=== PATIENT | female | born 1995 | race African-American/Black ===

== ENCOUNTER 2024-08-19 19:34 | Emergency (ER) | payer SELFPAY ==
[2024-08-19 19:37] VITALS: BMI 24.1
[2024-08-19 20:07] VITALS: BP 110/60; PULSE 106; RESP 24; TEMP 37; O2SAT 94
--- NOTE | 2024-08-19 21:21 | EDRME_ITS ---
Rapid Medical Screening Exam RME Arrival date/time: 08/19/24 19:34 Chief Complaint: Asthma Time Seen by Provider: 08/19/24 21:12 Vital signs: Vital Signs Temperature 98.6 F 08/19/24 20:07 Pulse Rate 106 H 08/19/24 20:07 Respiratory Rate 24 H 08/19/24 20:07 Blood Pressure 110/60 08/19/24 20:07 Pulse Oximetry (%) 94 L 08/19/24 20:07 Oxygen Delivery Method Room Air 08/19/24 20:07 Vital signs reviewed by provider: Yes RME Narrative: Very pleasant 28-year-old female presents to the ED with a complaint of asthma exacerbation. She is traveling here from [place] to work on the [employer] and has been here for 2 days. She forgot her inhaler at home. Her symptoms started last night with some wheezing however today the wheezing became audible and worse. She denies history of hospitalizations or intubations for her asthma. She takes Claritin which is not helpful for her chronic allergies. She has also tried multiple nasal sprays which just because nosebleeds. She denies any recent illness with fever, chills, ear pain or sore throat, nausea or vomiting, diarrhea or abdominal pain. DuoNeb and steroids ordered as well as chest x-ray.
--- NOTE | 2024-08-19 21:23 | XR_ITS ---
Examination: PA lateral chest 2 views TECHNIQUE: Upright PA lateral chest 2 views Exam date and time: August 19, 2024, 2127 hours INDICATIONS: Shortness of breath today, as in the history FINDINGS: Normal heart size. The lungs are clear. The osseous structures are intact. IMPRESSION: No active disease
[2024-08-19] MEDS: ALBUTEROL/IPRATROPIUM (Duoneb) RT SOL 3 ML NEBU INH (22:01)
[2024-08-19] MEDS: DEXAMETHASONE SOD PHOS INJ 10 MG/ML VIAL 12 MG PO (22:01)
[2024-08-19 22:02] VITALS: PULSE 109; RESP 20; O2SAT 99
--- NOTE | 2024-08-19 22:35 | PD.EDADULT ---
ED General RME/HPI General Chief complaint: Asthma Stated complaint: ASTHMA, NEEDS BREATHING TREATMENT Time Seen by Provider: 08/19/24 21:12 Arrival date/time: 08/19/24 19:34 RME / HPI RME / HPI narrative: Very pleasant 28-year-old female presents to the ED with a complaint of asthma exacerbation. She is traveling here from [place] to work on the [employer] and has been here for 2 days. She forgot her inhaler at home. Her symptoms started last night with some wheezing however today the wheezing became audible and worse. She denies history of hospitalizations or intubations for her asthma. She takes Claritin which is not helpful for her chronic allergies. She has also tried multiple nasal sprays which just cause nosebleeds. She denies any recent illness with fever, chills, ear pain or sore throat, nausea or vomiting, diarrhea or abdominal pain. DuoNeb and steroids ordered as well as chest x-ray. Related Data Previous Rx's ?Medication ?Instructions ?Recorded cetirizine 10 mg capsule (Zyrtec) 10 mg PO QDAY Allergic rhinitis 08/19/24 #30 caps levalbuterol tartrate 45 2 inh inhalation Q6H Asthma #15 08/19/24 mcg/actuation aerosol inhaler grams (Xopenex HFA) montelukast 10 mg tablet 10 mg PO QPM Allergies/asthma #30 08/19/24 tabs Allergies Allergy/AdvReac Type Severity Reaction Status Date / Time No Known Allergies Allergy Verified 08/19/24 19:36 Review of Systems Review of Systems Systems Reviewed: All systems reviewed, normal except as documented Past Medical History Social History SMOKING STATUS: Never smoker ED Exam Narrative Physical exam: Alert and oriented, very pleasant 28-year-old female, mild acute respiratory distress distress. Vital signs blood pressure 110/60, pulse 106, respirations 24 and nonlabored, temperature 98.6, O2 sat 94% on room air. Lung sounds are diminished at the bases with wheezing noted throughout. She has mild tachycardia, normal rhythm. Abdomen is soft and nontender. Skin is warm, normal color, and dry. Course Course Course Narrative: Patient was given Decadron 12 mg p.o. as well as a DuoNeb treatment. Chest x-ray reveals: No active disease. Quality Measures none Orders Category Date Time Status XR chest 2V Stat Exams 08/19/24 21:23 Completed Albuterol/Ipratr Rt Yumiko [Duoneb Rt Yumiko] Med 08/19/24 21:23 Discontinued 3 ml INH X1 ONE Dexamethasone Inj [Decadron Inj] Med 08/19/24 21:23 Discontinued 12 mg PO X1 ONE Reevaluation(s) Reevaluation #1: Recheck patient after Decadron and DuoNeb treatment. Patient's breath sounds are improved with only minimal scattered wheezes noted. She feels improved. Vital Signs Vital signs: Vital Signs Temperature 98.6 F 08/19/24 20:07 Pulse Rate 106 H 08/19/24 20:07 Respiratory Rate 24 H 08/19/24 20:07 Blood Pressure 110/60 08/19/24 20:07 Pulse Oximetry (%) 94 L 08/19/24 20:07 Oxygen Delivery Method Room Air 08/19/24 20:07 Discharge Plan Plan Patient Disposition: HOME (Self Care) Discharge Disposition comment: Stable and improved Prescriptions/Referrals Prescriptions/Med Rec: New Zyrtec 10 mg capsule 10 mg PO QDAY Qty: 30 0RF montelukast 10 mg tablet 10 mg PO QPM Qty: 30 0RF levalbuterol tartrate [Xopenex HFA] 45 mcg/actuation HFA aerosol inhaler 2 inh inhalation Q6H Qty: 15 0RF Referrals: No Primary/Family,Physician [Primary Care Provider] - In 1 week Problem List Clinical Impression: Asthma with acute exacerbation, Chronic rhinosinusitis with multiple nasal polyps Patient/Caregiver Discharge Instructions Education Materials: Allergies Nasal Rhinitis , ED Asthma, Acute (Adult) Additional Instructions: Talk to your doctor about a new prescription called Dupixent. I think this medication may be very helpful for your asthma and chronic rhinosinusitis Follow-up with your primary care physician in 24 to 48 hours. Return to the ED for any new or worsening symptoms. Print Language: Bulgarian Stand Alone Forms: [facility]akenna Award Info., Patient Portal Info Letter PA/PAYROLL ACCOUNTING SPECIALIST Supervising Physician PA/PAYROLL ACCOUNTING SPECIALIST Supervising Physician: Dr. Willoughby [facility] Narrative [facility] hospital course: Very pleasant 28-year-old female presents to the ED with a complaint of asthma exacerbation. She is traveling here from [place] to work on the [employer] and has been here for 2 days. She forgot her inhaler at home. Her symptoms started last night with some wheezing however today the wheezing became audible and worse. She denies history of hospitalizations or intubations for her asthma. She takes Claritin which is not helpful for her chronic allergies. She has also tried multiple nasal sprays which just cause nosebleeds. She denies any recent illness with fever, chills, ear pain or sore throat, nausea or vomiting, diarrhea or abdominal pain. Alert and oriented, very pleasant 28-year-old female, mild acute respiratory distress distress. Vital signs blood pressure 110/60, pulse 106, respirations 24 and nonlabored, temperature 98.6, O2 sat 94% on room air. Lung sounds are diminished at the bases with wheezing noted throughout. She has mild tachycardia, normal rhythm. Abdomen is soft and nontender. Skin is warm, normal color, and dry. Patient was given Decadron 12 mg p.o. as well as a DuoNeb treatment. Chest x-ray reveals: No active disease. Recheck patient after Decadron and DuoNeb treatment. Patient's breath sounds are improved with only minimal scattered wheezes noted. She feels improved. She was discharged home in stable and improved condition with instructions to follow-up with her primary care physician in 24 to 48 hours. She was encouraged to discuss a fairly new medication, Dupixent, which could be very helpful to improve her symptoms in the long-term. She was encouraged to return to the ED for any new or worsening symptoms. Procedures done or offered: DuoNeb and Decadron as well as XR chest. Clinical Information Provided by patient Medical Records Reviewed None Meds/Rx Considered, not Ordered None Describe details: As noted above Labs/Rad/Tests considered, not Ordered None Describe details: As noted above. Chronic Illness/Social Conditions which may negatively complicate care or outcome(s)-explain: other (Asthma) EKG EKG not done Lab Interpretation Labs: none Lab(s) interpretation(s): N/A Imaging Imaging interpretation: see narrative above Radiology reports / interpretation(s): As noted above Medication Administration(s) Medication Administration History Discontinued Medications Albuterol/Ipratropium (Albuterol/Ipratropium (Duoneb) Rt Yumiko 3 Ml Nebu) 3 ml INH X1 ONE Stop: 08/19/24 21:24 Last Admin: 08/19/24 22:01 Dose: 3 ml Documented By: PABLITO Dexamethasone Sodium Phosphate (Dexamethasone Sod Phos Inj 10 Mg/Ml Vial) 12 mg PO X1 ONE Stop: 08/19/24 21:24 Last Admin: 08/19/24 22:01 Dose: 12 mg Documented By: KF As noted above Diagnosis Differential diagnosis: Pneumonia, status asthmaticus, acute exacerbation of asthma Differential dx and/or dx ruled out: Pneumonia, status asthmaticus Most likely dx, and/or detailed dx discussion: Acute exacerbation of asthma Dispositon Disposition: Discharge Home Disposition comments: Patient is stable for discharge
== END 2024-08-19 22:40 | disposition home or self-care (01) ==
PROVIDERS: Emergency Provider Emergency Medicine
DX: J45.901 Unspecified asthma with (acute) exacerbation (principal); J32.9 Chronic sinusitis, unspecified; J33.9 Nasal polyp, unspecified
CPT/HCPCS: 71046; 94640; 99283; A9270; J1100